=== PATIENT | male | born 1960 | race African-American/Black ===

== ENCOUNTER 2021-08-07 08:23 | Inpatient (IN) | payer OTHER ==
[~2021-08-07] VITALS: Ht 180.3 cm; Wt 70.5 kg
[2021-08-07 08:25] VITALS: BP_SYST 111
--- NOTE | 2021-08-07 08:25 | NUR ---
Pt to bed 2 for evaluation. Report given to GUDELIA Coyle who will assume care.
--- NOTE | 2021-08-07 08:40 | NUR ---
ASSUMED CARE OF PT AT THIS TIME. BIB EMS FROM SNF WITH C/O "FAILURE TO THRIVE". PER REPORT, PT HAS ONLY BEEN EATING 20% OF MEALS X1 WEEK. REFERRED BY PMD FOR EVAL. PT IS ALERT, NON VERBAL. RESP EVEN AND UNLABORED. PLACED ON HERB GROWER, NSR. PER REPORT PT WAS SATING AT 87% ON ROOM AIR, WAS PLACED ON 2L AND SATS IMPROVED TO 94-96%. SATING WELL AT THIS TIME, NO RESP DISTRESS, ROOM AIR 96% AT THIS TIME. VSS. DOES NOT APPEAR TO BE IN ANY DISTRESS. AWAITING MD GARCIA, WILL CONT TO MONITOR
--- NOTE | 2021-08-07 08:50 | NUR ---
Dr. Ma at bedside to assess.
[2021-08-07 09:24] LABS: BASOPHILS % (AUTO) 0.4 % (0.0-2.0); EOSINOPHILS # (AUTO) 0.2 K/uL (0.0-0.4); EOSINOPHILS % (AUTO) 1.6 % (0.0-4.0); HEMATOCRIT 36.6 % (36-54); HEMOGLOBIN 12.4 g/dL (14.0-18.0); LYMPHOCYTES # (AUTO) 1.7 K/uL (1.0-5.5); LYMPHOCYTES % (AUTO) 14.2 % (20.5-51.5); MEAN CORPUSCULAR HEMOGLOBIN 29 pg (27-31); MEAN CORPUSCULAR HGB CONC 34 % (32-36); MEAN CORPUSCULAR VOLUME 87 fL (79.0-98.0); MONOCYTES # (AUTO) 1.2 K/uL (0.0-1.0); MONOCYTES % (AUTO) 9.9 % (1.7-9.3); NEUTROPHILS % (AUTO) 73.9 % (40.0-70.0); PLATELET COUNT (AUTO) 293 K/uL (130-430); RED BLOOD CELL COUNT(AUTO) 4.23 MIL/uL (4.2-6.2); RED CELL DISTRIBUTION WIDTH 13.4 % (9.0-15.0); WHITE BLOOD COUNT (AUTO) 12.1 K/uL (4.8-10.8)
[2021-08-07 09:38] LABS: ANION GAP 7 (5-15); CALCIUM 8.6 mg/dL (8.4-11.0); CHLORIDE 103 mmol/L (98-107); CREATININE 0.72 mg/dL (0.55-1.30); GLUCOSE 156 mg/dL (70-99); POTASSIUM 3.4 mmol/L (3.5-5.1); SODIUM SERUM 135 mmol/L (136-145); UREA NITROGEN, BLOOD 9 mg/dL (8-21)
[2021-08-07 09:41] LABS: GFR AFRICAN AMERICAN 144 mL/min (>90)
[2021-08-07 09:42] LABS: INR 1.1 (0.80-1.20); PROTHROMBIN TIME 11.8 SECS (9.5-12.5)
[2021-08-07 09:47] LABS: ALBUMIN 2.9 g/dL (3.4-4.8); ASPARTATE AMINOTRANSFERASE 13 U/L (10-37); TOTAL BILIRUBIN 0.8 mg/dL (0.0-1.0)
[2021-08-07 10:00] LABS: ALANINE AMINOTRANSFERASE 6 U/L (12-78)
[2021-08-07 10:17] LABS: BILIRUBIN,URINE 1+ (NEGATIVE); BLOOD, URINE 3+ (NEGATIVE); COLOR,URINE YELLOW (YELLOW); GLUCOSE,URINE NEGATIVE (NEGATIVE); KETONES,URINE TRACE (NEGATIVE); LEUKOCYTE ESTERASE ,URINE 3+ (NEGATIVE); NITRITE, URINE NEGATIVE (NEGATIVE); PH,URINE 8.5 (5.0-8.0); PROTEIN URINE 2+ (NEGATIVE)
[2021-08-07 10:20] LABS: CLARITY/URINE HAZY (CLEAR)
--- NOTE | 2021-08-07 10:45 | NUR ---
pt resting comfortably. no distress noted. vss. resp even and unlabored. awaiting medical bed. will cont to monitor
[2021-08-07] MEDS ORDERED: cefTRIAXone 1 GM IVPB PREMIX 50 ML IV ONE (11:00)
--- NOTE | 2021-08-07 11:13 | NUR ---
Admit bed requested Patient will be admitted to care of . Admitted to MED SURG unit. Diagnosis UTI/DEHYDRATION Inpatient (Yes or No) Y Observation (Yes or No) [N Orientation concerns or request close to nursing station (Yes or No) N Covid Status NEG On vent or bipap N Isolation requirements N Needs a sitter N From Home (Yes or if No enter name of facility) SNF Requires Dialysis (Yes or No) N Med Rec Completed (Yes of No) Y
[2021-08-07] MEDS ORDERED: NOR10 PO (11:18)
[2021-08-07] MEDS ORDERED: ASPI-1393 PO (11:19)
[2021-08-07] MEDS ORDERED: LOSA50TA3 PO (11:20)
[2021-08-07] MEDS ORDERED: DOCU-144 PO (11:21)
[2021-08-07] MEDS ORDERED: METF-518 PO (11:24)
[2021-08-07] MEDS ORDERED: PRAV20TA59 PO (11:25)
[2021-08-07 11:48] LABS: BACTERIA,URINE MODERATE /HPF (None Seen)
--- NOTE | 2021-08-07 15:02 | NUR ---
NO CHANGE IN STATUS. RESTING COMFORTABLY. NO DISTRESS NOTED. VSS. AWAITING MEDICAL BED, WILL CONT TO MONITOR
--- NOTE | 2021-08-07 16:19 | NUR ---
NO CHANGE IN CONDITION. REPOSITIONED FOR COMFORT. INCONTINENT OF URINE, DIAPER CHANGED. VSS. AWAITING MEDICAL BED. WILL CONT TO MONITOR
[2021-08-07] MEDS: KCL 20 mEq in D5NS 1000 mL 1,000 ML IV SCH (17:22)
--- NOTE | 2021-08-07 18:01 | NUR ---
PT HAS READY BED. PT GOING TO ROOM 107A, MED SURG. REPORT GIVEN TO CAM GALEAS. PT RESTING COMFORTABLY. IVF INFUSING, IV PATENT AND WITHOUT S/S INFILTRATION. VSS. PT IS STABLE FOR TRANSFER TO FLOOR
[2021-08-07] MEDS ORDERED: ACETAMINOPHEN 325 MG TABLET PO PRN (20:00)
[2021-08-07] MEDS: DOCUSATE SODIUM 100 MG CAPSULE PO SCH ×2 (21:00→21:20)
[2021-08-07] MEDS: CEFEPIME 1 GM in D5W 50 ML IV SCH (21:20)
[2021-08-07] MEDS: ENOXAPARIN SODIUM 40 MG/0.4 ML SYRINGE SUBCUT SCH (21:20)
[2021-08-07 23:36] VITALS: BP_SYST 138
[2021-08-08 00:32] VITALS: BP_SYST 124
[2021-08-08] MEDS: KCL 20 mEq in D5NS 1000 mL 1,000 ML IV SCH ×2 (05:37→22:05)
[2021-08-08] MEDS ORDERED: PRAVASTATIN SODIUM 20 MG TABLET (PRAVACHOL) PO SCH (09:00)
[2021-08-08] MEDS: DOCUSATE SODIUM 100 MG CAPSULE PO SCH ×2 (09:30→22:04)
[2021-08-08] MEDS: ATORVASTATIN 10 MG TABLET PO SCH (09:30)
[2021-08-08] MEDS: ASPIRIN 81 MG TABLET(ECOTRIN) PO SCH (09:30)
[2021-08-08] MEDS: CEFEPIME 1 GM in D5W 50 ML IV SCH ×2 (09:30→22:05)
[2021-08-08] MEDS: amLODIPine BESYLATE 10 MG TABLET PO SCH (09:31)
[2021-08-08 11:33] VITALS: BP_SYST 122
[2021-08-08] MEDS: INSULIN REGULAR, HUMAN 100 UNITS/ML, 10 ML VIAL (humuLIN R) SUBCUT PRN ×2 (12:20→22:18)
[2021-08-08] MEDS: LOSARTAN POTASSIUM 50 MG TABLET (COZAAR) PO SCH (12:34)
[2021-08-08 15:22] VITALS: BP_SYST 140
--- NOTE | 2021-08-08 17:32 | NUR ---
ST EVALUATION COMPLETED. ST TX NOT INDICATED AT THIS TIME. RECOMMEND PO DIET OF MECHANICAL SOFT FINELY CHOPPED/THIN LIQUID WITH 1:1 SUPERVISION AND FULL ASPIRATION PRECAUTIONS.
[2021-08-08 20:00] VITALS: BP_SYST 135
[2021-08-08] MEDS: ENOXAPARIN SODIUM 40 MG/0.4 ML SYRINGE SUBCUT SCH (22:16)
[2021-08-09 00:14] VITALS: BP_SYST 146
[2021-08-09] MEDS: KCL 20 mEq in D5NS 1000 mL 1,000 ML IV SCH ×2 (03:30→16:52)
[2021-08-09 07:18] LABS: BASOPHILS % (AUTO) 0.4 % (0.0-2.0); EOSINOPHILS # (AUTO) 0.2 K/uL (0.0-0.4); EOSINOPHILS % (AUTO) 2.8 % (0.0-4.0); HEMATOCRIT 34.6 % (36-54); HEMOGLOBIN 11.7 g/dL (14.0-18.0); LYMPHOCYTES # (AUTO) 1.1 K/uL (1.0-5.5); LYMPHOCYTES % (AUTO) 20.8 % (20.5-51.5); MEAN CORPUSCULAR HEMOGLOBIN 29 pg (27-31); MEAN CORPUSCULAR HGB CONC 34 % (32-36); MEAN CORPUSCULAR VOLUME 86 fL (79.0-98.0); MONOCYTES # (AUTO) 0.8 K/uL (0.0-1.0); MONOCYTES % (AUTO) 14.4 % (1.7-9.3); NEUTROPHILS # (AUTO) 3.4 K/uL (1.8-7.7); NEUTROPHILS % (AUTO) 61.6 % (40.0-70.0); PLATELET COUNT (AUTO) 281 K/uL (130-430); RED BLOOD CELL COUNT(AUTO) 4.04 MIL/uL (4.2-6.2); RED CELL DISTRIBUTION WIDTH 13.3 % (9.0-15.0); WHITE BLOOD COUNT (AUTO) 5.5 K/uL (4.8-10.8)
[2021-08-09 07:31] LABS: CREATININE 0.49 mg/dL (0.55-1.30); POTASSIUM 3.2 mmol/L (3.5-5.1)
[2021-08-09] MEDS: LOSARTAN POTASSIUM 50 MG TABLET (COZAAR) PO SCH (09:00)
[2021-08-09] MEDS: amLODIPine BESYLATE 10 MG TABLET PO SCH (09:00)
[2021-08-09] MEDS: CEFEPIME 1 GM in D5W 50 ML IV SCH ×2 (09:00→22:56)
[2021-08-09] MEDS: ASPIRIN 81 MG TABLET(ECOTRIN) PO SCH (09:36)
[2021-08-09] MEDS: DOCUSATE SODIUM 100 MG CAPSULE PO SCH ×2 (09:36→22:55)
[2021-08-09] MEDS: ATORVASTATIN 10 MG TABLET PO SCH (09:36)
[2021-08-09 11:36] VITALS: BP_SYST 156
[2021-08-09] MEDS: INSULIN REGULAR, HUMAN 100 UNITS/ML, 10 ML VIAL (humuLIN R) SUBCUT PRN ×2 (11:55→23:11)
[2021-08-09] MEDS ORDERED: POTASSIUM CHLORIDE 20 MEQ/PKT PACKET PO ONE (13:45)
--- NOTE | 2021-08-09 14:15 | NUR ---
CM :Clinical updated to Lebron/cm at [facility] # [phone]: UA cx is pending for possible dc back to [facility] tomorrow.
--- NOTE | 2021-08-09 14:20 | NUR ---
Discharge Planning: DCP faxed pt referral to [facility] P#[phone] DCP to follow up. Addendum: 08/10/21 at 1233 by Nell Ocampo DP DCP followed up with [facility] P#[phone] pt will go to [facility]m 2[facility], DCP faxed transport order to P# [phone] F#[phone] for auth DCP made CM aware and DCP to follow up Addendum: 08/10/21 at 1435 by Nell Ocampo DP [facility] P#[phone] accept pt to [facility] transport arranged with [facility] [phone] BLS 5:00pm Auth#[id number] made aware, patient packet taken to nurse station.
[2021-08-09 15:29] VITALS: BP_SYST 137
[2021-08-09 21:40] VITALS: BP_SYST 131
[2021-08-09] MEDS: ENOXAPARIN SODIUM 40 MG/0.4 ML SYRINGE SUBCUT SCH (22:57)
[2021-08-10 01:08] VITALS: BP_SYST 131
[2021-08-10] MEDS: KCL 20 mEq in D5NS 1000 mL 1,000 ML IV SCH (05:37)
[2021-08-10 08:00] VITALS: BP_SYST 141
[2021-08-10] MEDS: LOSARTAN POTASSIUM 50 MG TABLET (COZAAR) PO SCH (09:00)
[2021-08-10] MEDS: ATORVASTATIN 10 MG TABLET PO SCH (09:00)
[2021-08-10] MEDS: CEFEPIME 1 GM in D5W 50 ML IV SCH (09:00)
[2021-08-10] MEDS: amLODIPine BESYLATE 10 MG TABLET PO SCH (09:00)
[2021-08-10] MEDS: ASPIRIN 81 MG TABLET(ECOTRIN) PO SCH (09:00)
[2021-08-10] MEDS: DOCUSATE SODIUM 100 MG CAPSULE PO SCH (09:00)
--- NOTE | 2021-08-10 11:55 | NUR ---
DC PLANNING Called & discussed dc plan with Dr Ferro, states pt will need to cont IV abx for 3more days. Gave ph order to dc back to [facility] today. Per dc brand planner [facility] accepted pt back. Called & spoke with alissa Thomason, ph [phone], agrees with dc back to [facility] today. Updated dc brand planner. Addendum: 08/10/21 at 1539 by Gladys Wells RN Earlier today called & spoke with Lebron at [facility] [phone], updated accepted back at [facility]. [facility] will send auth to [facility], will have dc brand planner work on auth for [facility]. Received call from Richi at [facility] [phone], auth for transportation: [id number]. Updated dc brand planner.
[2021-08-10 12:30] VITALS: BP_SYST 135
[2021-08-10 13:39] VITALS: BP_SYST 135
--- NOTE | 2021-08-10 14:00 | NUR ---
Called report to GUDELIA Cha at [facility] [phone]. Patient will go to Room 2B.
--- NOTE | 2021-08-10 17:20 | NUR ---
[facility] WAS CALLED TO GET AN ETA TO GO TO [facility], RM 2. 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 SPOKE TO NII.
== END 2021-08-10 19:40 | DRG 690 ==
LOC: SED 08:23 → SMU 11:16
PROVIDERS: ADMIT Family Medicine; ATTEND Family Medicine
DX: N39.0 Urinary tract infection, site not specified (principal); E44.0 Moderate protein-calorie malnutrition; I69.351 Hemiplegia and hemiparesis following cerebral infarction affecting right dominant side; E86.0 Dehydration; Z20.822 Contact with and (suspected) exposure to COVID-19; E11.9 Type 2 diabetes mellitus without complications; I10 Essential (primary) hypertension; Z68.21 Body mass index [BMI] 21.0-21.9, adult; R62.7 Adult failure to thrive
CPT/HCPCS: 36415; 71045; 80048; 80053; 81000; 82962; 83605; 83735; 84484; 85025; 85610-TC; 85730-TC; 87040; 87081; 87086; 92610-GN; 93005; 96365; 99291; J0692; J0696; J1650; J1815; J7060